=== PATIENT | male | born 1940 | race Caucasian/White ===

== ENCOUNTER 2019-08-23 12:57 | Observation (INO) ==
[2019-08-23 13:44] LABS: Basophils # (auto) 0.02 K/uL (0-0.2); Basophils % (auto) 0.2 %; Eosinophils # (auto) 0.16 K/uL (0-0.5); Eosinophils % (auto) 1.9 %; Hemoglobin 14.5 g/dL (14.0-18.0); Immature Granulocytes # (auto) 0.01 K/uL (0.00-0.02); Immature Granulocytes % (auto) 0.1 %; Lymphocytes # (auto) 2.44 K/uL (1.2-3.4); Lymphocytes % (auto) 29.6 %; Mean Corpuscular Hemoglobin 32.3 pg (25-34); Mean Corpuscular Hgb Conc 33.7 g/dL (32-36); Mean Corpuscular Volume 95.8 fL (80-100); Mean Platelet Volume 10.5 fL (7.4-10.4); Monocytes # (auto) 0.82 K/uL (0.11-0.59); Monocytes % (auto) 9.9 %; Neutrophils % (auto) 58.3 %; Platelet Count 221 K/uL (130-400); RDW Coefficient of Variation 12.7 % (11.5-14.5); RDW Standard Deviation 44.1 fL (36.4-46.3); Red Blood Count 4.49 M/uL (4.7-6.1); White Blood Count 8.25 K/uL (4.8-10.8)
[2019-08-23 13:53] LABS: Alanine Aminotransferase 32 U/L (12-78); Albumin Level 3.7 gm/dl (3.4-5.0); Aspartate Aminotransferase 20 U/L (15-37); BUN Creatinine Ratio 16.1 (10-20); Blood Urea Nitrogen 15 mg/dl (7-18); Calcium 8.9 mg/dl (8.5-10.1); Carbon Dioxide 27 mmol/L (21-32); Chloride 107 mmol/L (98-107); Creatinine Clr Calc Pharmacy 67.3 ml/min; Est GFR (African American) 88.5; Est GFR (Non-African American) 76.4; Glucose 109 mg/dl (70-99); Potassium 3.5 mmol/L (3.5-5.1); Sodium 140 mmol/L (136-145)
--- NOTE | 2019-08-23 13:55 | XRay Report ---
XR chest 1V portable HISTORY: 79 years-old Male weakness acute weakness COMPARISON: Chest radiograph 01/09/2018 TECHNIQUE: Portable AP view of the chest FINDINGS: Cardiac silhouette is mildly enlarged, unchanged. No pneumothorax, pleural effusion, focal airspace c onsolidation or overt pulmonary edema. Bones of the chest appear grossly intact. Vertebroplasty sheppard es at L1. Calcified right hilar lymph nodes. Degenerative changes of the shoulders and spine. IMPRESSION: No acute process. ACT 112: Negative or not required by law. The above report was generated using voice recognition software. It may contain grammatical, syntax o r spelling errors. Electronically signed by: Ritchie Salomon M.D. 08/23/2019 1:53 PM
[2019-08-23 14:04] LABS: Alkaline Phosphatase 59 U/L (45-117); Bilirubin,Total 0.3 mg/dl (0.2-1); Globulin 3.6 gm/dl (2.5-4.0); Total Protein 7.3 gm/dl (6.4-8.2); Troponin I < 0.015 ng/ml (0-0.045)
[2019-08-23 15:19] LABS: Appearance Urine Cloudy (Clear); Bacteria Urine Automated Negative (Negative); Bilirubin Urine Negative (Negative); Blood Urine Negative (Negative); Color Urine Yellow; Epithelial Cell Urine Auto >30 /lpf (0-5); Glucose Urine UA Negative (Negative); Ketones Urine Negative (Negative); Leukocyte Esterase Urine Negative (Negative); Nitrite Urine Negative (Negative); Protein Urine Negative (Negative); RBC Urine Automated 0-4 /hpf (0-4); Specific Gravity Urine 1.014 (1.000-1.030); Urobilinogen Urine Negative (Negative); pH Urine 6.5 (4.5-7.5)
--- NOTE | 2019-08-23 17:02 | History & Physical Report ---
Date of Service August 23, 2019 Assessment & Plan (1) Syncope: This is a 79yo M with no known medical history who presents after witnessed syncopal event this afternoon. -Likely vasovagal syncopal episode -Feeling well now, no lightheadedness, visual changes, chest pain or palpitations -No history of seizures or cardiac arrhythmia -Orthostatic vitals wnl, CXR without acute process, EKG with normal sinus rhythm at 66 bpm, no electrolyte abnormalities -CT head w/o contrast pending, although low suspicion for abnormal findings -Monitor on telemetry overnight DVT Ppx: SQ heparin Code status: FULL PCP: [facility] in [place] and in [place] Dispo: Observation med tele. Plan to return home once medically stable. Patient seen in collaboration with Dr. Alejandre. Please see addendum. History of Present Illness Chief Complaint: syncopal event Primary Care Provider: NO PCP This is a 79yo M with no known medical history who presents after witnessed syncopal event this afternoon. Patient was in normal state of health this morning and went to caodaism. Paton very warm afterwards and took off winter coat and hat before becoming diaphoretic and feeling like he was going to pass out. Per , patient then slumped over in chair and was unresponsive for a few minutes before coming to. Denies any preceding dizziness, visual changes, headache, chest pain, palpitations or shortness of breath. Per , patient seemed lethargic after waking but was alert and oriented. No tongue biting or bowel/bladder incontinence. Denies any history of syncopal events, IN, CVA or seizures. Denies fever, chills, nausea, vomiting, abdominal pain, dysuria, diarrhea or constipation. PCP [facility] in [place] and in [place]. Allergies Allergy/AdvReac Type Severity Reaction Status Date / Time No Known Allergies Allergy Unverified 08/23/19 13:37 Home Medications Home Medications Medication Instructions Recorded Confirmed Type calcium carbonate-vitamin D3 1 tab PO BID 08/23/19 08/23/19 History [Calcium 600 + D(3)] cyanocobalamin (vitamin B-12) 500 mcg PO QAM 08/23/19 08/23/19 History [Vitamin B-12] Past Med/Surg History Medical History No significant medical problems (Chronic) Surgical History H/O lumpectomy H/O Spinal surgery History of thumb surgery Family History Other Cancer Social History Preferred Language: Belarusian Communication Ability: Effective 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 Beliefs That Will Affect Care: None marital status: Current Living Situation: Spouse current occupational status: retired Other Information That Helps Us Care for You: No Feels Safe at Home: Yes Safety Concerns: Feels Safe At This Time Smoking Status: Former smoker Do You Dip or Chew Tobacco: No ; Smoking End Date: 1980 ; Second Hand Exposure: No ; Tobacco Cessation Education Requested by Patient: No Hx Alcohol Use: Yes Alcohol type: beer Alcohol Intake Frequency: Rarely Hx Substance Use: No Childhood Exposure to Second-Hand Smoke: No Review of Systems Review of Systems: At least ten systems reviewed and negative except as noted in the HPI. Physical Exam Physical Exam: Please see Dr. Alejandre's addendum for physical exam details. Results & Data Vital Signs (Past 12 Hours) Vital Signs Temp Pulse Resp BP Pulse Ox 08/23/19 16:13 74 23 152/85 H 08/23/19 16:12 80 13 140/77 08/23/19 16:11 64 19 138/82 08/23/19 16:01 66 18 08/23/19 16:00 62 21 131/94 08/23/19 15:31 61 23 08/23/19 15:30 57 L 12 130/84 08/23/19 15:01 63 15 08/23/19 15:00 63 18 130/82 08/23/19 14:30 63 16 135/86 95 08/23/19 14:00 69 17 138/88 95 08/23/19 13:43 94 08/23/19 13:30 61 15 145/92 H 94 08/23/19 12:57 36.5 C 62 14 156/89 H 97 Laboratory Results Short CBC 08/23/19 Range/Units 12:27 WBC 8.25 (4.8-10.8) K/uL Hgb 14.5 (14.0-18.0) g/dL Hct 43.0 (42-52) % Plt Count 221 (130-400) K/uL BMP 08/23/19 12:27 Sodium 140 Potassium 3.5 Chloride 107 Carbon Dioxide 27 BUN 15 Creatinine 0.95 Glucose 109 H Calcium 8.9 Cardiac Enzymes 08/23/19 Range/Units 12:27 Troponin I < 0.015 (0-0.045) ng/ml Liver Function 08/23/19 Range/Units 12:27 Total Bilirubin 0.3 (0.2-1) mg/dl AST 20 (15-37) U/L ALT 32 (12-78) U/L Alkaline Phosphatase 59 (45-117) U/L Albumin 3.7 (3.4-5.0) gm/dl Urine 08/23/19 Range/Units 15:10 Urine Color Yellow Urine Appearance Cloudy A (Clear) Urine pH 6.5 (4.5-7.5) Ur Specific [place] 1.014 (1.000-1.030) Urine Protein Negative (Negative) Urine Glucose (UA) Negative (Negative) Supervising Physician Co-Signing Physician Notes 79year old man with some hearing deficits (uses hearing aides) who presents after witnessed syncopal event this afternoon at home. History and physical exam performed by me. History is documented by Yarlei Izaguirre PA-C and notable for feeling warm prior to syncopal episode, lasted about 5 mins. No jerky movement of limbs/urinary or bowel incontinence/palpitation/chest pain/SOB prior to episode No confusion on recovery, No focal deficits noted by patient or family. On physical exam General: Elderly, well hydrated, average body habitus, no acute distress and not ill appearing Eyes: PERRL, conjunctivae normal, not pale, anicteric sclerae, EOM intact bilaterally ENMT: External ear and nose normal, Hearing aide in left ear, oropharynx normal Neck: Normal visual inspection, no tracheal deviation, no swelling noted Respiratory: Normal respiratory effort, no respiratory distress, lungs clear to auscultation, no crackles and no wheezes Cardiovascular: Pulse is RRR. S1 S2 no murmurs. No pedal edema Chest (Breasts): Chest: normal inspection of chest Gastrointestinal (Abdomen): Abdomen is not distended, soft, non-tender to palpation, no guarding, no palpable hepatosplenomegaly, normal bowel sounds Musculoskeletal: No cyanosis or clubbing, all extremities motor strength 5/5 Genitourinary: No CVA tenderness Skin: No rash noted on gross inspection, No ulcers noted Neurologic: Alert and oriented x 3, No focal weakness, sensation grossly intact Psychiatric: Euthymic affect, normal judgement Witnessed syncopal episode Likely vasovagal Lab work unremarkable. EKG unremarkable No history of seizures, arrhythmias Only takes Calcium and vitamins Get CT head Family wants patient observed overnight monitoring manager (1) Syncope Syncope type: unspecified Qualified Code(s): R55 - Syncope and collapse
--- NOTE | 2019-08-23 17:58 | Emergency Department Note ---
Entered by Marielle España acting as a scribe for Ranjan Hunt MD ED Provider Note CHIEF COMPLAINT: Syncope HISTORY OF PRESENT ILLNESS: The patient is a 79 year old male who presents to the Emergency Room with complaints of an episode of syncope occurring prior to arrival. The patient's daughter states that on their way home from jehovah's witness today they stopped at her cousin's house so she could drop off some checks. She states that they ended up sitting there and talking for some time. She states that she and the patient were sitting on barstools. She reports that suddenly the patient got off his barstool and took his coat off. She states that he dropped it on the floor before sitting down in the kitchen chair next to the stool. She reports that the patient then took his winter hat off and wiped sweat off his forehead before her cousin asked if he was falling asleep. The patient's daughter states that the patient started to slump in his chair and fall off. She reports that she jumped up to grab him and told her cousin to call 911. She states that she started calling his name, but he was ghost white. She states that his eyes were closed and his mouth was hanging open. She reports that she thought he had . She states that he suddenly jerked his head, opened his eyes, and started waving his arms. She reports that he then kept asking her why she was upset. The patient states that he has no recollection of the event. The patient's daughter states that the patient had icy hands at this time and was soaked in sweat. She notes that this happened once before years ago when he got out of a hot shower. The patient denies head pain and diarrhea. Pt denies headache, fevers, chills, visual changes, neck pain, chest pain, breathing difficulties, nausea, vomiting, abdominal pain, back pain, melena, hematochezia, urinary symptoms, numbness, weakness, lymphadenopathy, rash, or other complaints. REVIEW OF SYSTEMS: See HPI for pertinent positives and negatives. A total of ten systems were reviewed and were otherwise negative. PMHx/PSHx: The patient has a history of spine surgery, lumpectomy, and thumb surgery. SOCIAL HISTORY: Patient lives at home with his . He is retired and a former smoker. He rarely drinks beer and denies doing any substnace use. PHYSICAL EXAM: GENERAL: Awake, alert, well-appearing, in no distress HENT: Normocephalic, atraumatic. Oropharynx unremarkable. EYES: PERRL. Normal conjunctiva. Sclera non-icteric. NECK: Inspection normal. Non-tender. Supple. No nuchal rigidity. FROM. No masses. RESPIRATORY: Clear to auscultation. No wheezes. No rales. Normal respiratory effort. CARDIAC: Normal rate. Normal rhythm. No murmurs. No rubs. Extremities warm and well perfused. Pulses equal. No JVD. GI: Soft, non-distended. No tenderness to palpation. No rebound or guarding. No masses. RECTAL: Deferred. MUSCULOSKELETAL: Atraumatic. Chest examination reveals no tenderness. The back is symmetrical on inspection without obvious abnormality. There is no CVA tenderness to palpation. No joint edema. LOWER EXTREMITIES: Calves are equal size bilaterally and non-tender. No edema. No discoloration. NEURO: Normal sensorium. No sensory or motor deficits noted. SKIN: No rash or jaundice noted. EMERGENCY DEPARTMENT COURSE: 1408: The patient was evaluated in room B12B, and a complete history and physical examination were performed. 1556: I reevaluated the patient and updated him on his test results at this time. I discussed the treatment plan with him. He verbally agrees and understan ds. 1604: I discussed the patient's case [facility] She will evaluate the patient for further management under Dr. Alejandre's service. MEDICAL DECISION MAKING: Triage Nursing notes reviewed and agree them. Additional history obtained from the family. The patient's history was concerning for syncope. Differential diagnosis: Etiologies such as infection, hypoglycemia, electrolyte abnormalities, cardiac sources, vasovagal event, intracerebral event, toxicologic, neurologic, as well as others were entertained. Physical examination: As above. Patient had a nonfocal examination. ER treatment provided: No medication given On reassessment the patient felt better. Diagnostics interpretation by me: ECG: Normal sinus rhythm The labs revealed an unremarkable CBC and chemistry panel. Imaging studies: Chest imaging was performed and was negative for acute process. The patient had a syncopal episode. It seems consistent with a vasovagal event however the patient's was very concerned and did not want the patient discharged. Consultation: A consultation was placed with the hospitalist. The case was discussed and diagnostics were reviewed. The patient was evaluated in the ER for further treatment. HAND OUTSIDE CUTTER: Continuous Cardiac Monitoring: An order was placed for continuous cardiac monitoring. The monitor shows a rate of 62 with normal sinus rhythm. IMPRESSION: Syncope PLAN: Being Evaluated by a Hosptialist. The scribe's documentation has been prepared under my direction and personally reviewed by me in its entirety. I confirm that the note above accurately reflects all work, treatment, procedures, and medical decision making performed by me. Impression & Plan Syncope Past Med/Surg History Medical History No significant medical problems (Chronic) Surgical History H/O lumpectomy H/O Spinal surgery History of thumb surgery Family History Other Cancer Social History Preferred Language: Syriac marital status: Current Living Situation: Spouse current occupational status: retired Feels Safe at Home: Yes Smoking Status: Former smoker Smoking End Date: 1980 ; Hx Alcohol Use: Yes Alcohol type: beer Alcohol Intake Frequency: Rarely Hx Substance Use: No Childhood Exposure to Second-Hand Smoke: No Results & Data Vital Signs Vital Signs - 24 hr 08/23/19 12:57 08/23/19 13:30 08/23/19 13:43 Temperature 36.5 C Temperature Source Oral Pulse Rate - Lying Pulse Rate - Sitting Pulse Rate - Standing Pulse Rate 62 61 Pulse Rhythm Regular Respiratory Rate 14 15 Respiratory Effort / Characteristics Non-Labored Respiratory Depth Normal Respiratory Pattern Regular Blood Pressure - Lying Blood Pressure - Sitting Blood Pressure- Standing Blood Pressure 156/89 H 145/92 H Blood Pressure Mean 111 104 Pulse Oximetry 97 94 94 Oxygen Delivery Method Room Air Room Air Room Air Sepsis Recent Fever Within 48 Hours No Sepsis New/Unexplained Change in Mental Status No Sepsis Action Taken by Nursing No Action Required 08/23/19 14:00 08/23/19 14:30 08/23/19 15:00 Temperature Temperature Source Pulse Rate - Lying Pulse Rate - Sitting Pulse Rate - Standing Pulse Rate 69 63 63 Pulse Rhythm Respiratory Rate 17 16 18 Respiratory Effort / Characteristics Respiratory Depth Respiratory Pattern Blood Pressure - Lying Blood Pressure - Sitting Blood Pressure- Standing Blood Pressure 138/88 135/86 130/82 Blood Pressure Mean 103 96 102 Pulse Oximetry 95 95 Oxygen Delivery Method Room Air Room Air Sepsis Recent Fever Within 48 Hours Sepsis New/Unexplained Change in Mental Status Sepsis Action Taken by Nursing 08/23/19 15:01 08/23/19 15:30 08/23/19 15:31 Temperature Temperature Source Pulse Rate - Lying Pulse Rate - Sitting Pulse Rate - Standing Pulse Rate 63 57 L 61 Pulse Rhythm Respiratory Rate 15 12 23 Respiratory Effort / Characteristics Respiratory Depth Respiratory Pattern Blood Pressure - Lying Blood Pressure - Sitting Blood Pressure- Standing Blood Pressure 130/84 Blood Pressure Mean 95 Pulse Oximetry Oxygen Delivery Method Sepsis Recent Fever Within 48 Hours Sepsis New/Unexplained Change in Mental Status Sepsis Action Taken by Nursing 08/23/19 16:00 08/23/19 16:01 08/23/19 16:11 Temperature Temperature Source Pulse Rate - Lying Pulse Rate - Sitting Pulse Rate - Standing Pulse Rate 62 66 64 Pulse Rhythm Respiratory Rate 21 18 19 Respiratory Effort / Characteristics Respiratory Depth Respiratory Pattern Blood Pressure - Lying Blood Pressure - Sitting Blood Pressure- Standing Blood Pressure 131/94 138/82 Blood Pressure Mean 104 98 Pulse Oximetry Oxygen Delivery Method Sepsis Recent Fever Within 48 Hours Sepsis New/Unexplained Change in Mental Status Sepsis Action Taken by Nursing 08/23/19 16:12 08/23/19 16:13 Temperature Temperature Source Pulse Rate - Lying 66 Pulse Rate - Sitting 71 Pulse Rate - Standing 65 Pulse Rate 80 74 Pulse Rhythm Respiratory Rate 13 23 Respiratory Effort / Characteristics Respiratory Depth Respiratory Pattern Blood Pressure - Lying 138/82 Blood Pressure - Sitting 140/77 Blood Pressure- Standing 152/85 H Blood Pressure 140/77 152/85 H Blood Pressure Mean 103 112 Pulse Oximetry Oxygen Delivery Method Sepsis Recent Fever Within 48 Hours Sepsis New/Unexplained Change in Mental Status Sepsis Action Taken by [facility] Medications Current Medication List: was personally reviewed by me Laboratory Data Attestation: I reviewed the patient's lab results. Result diagrams: 08/23/19 12:27 08/23/19 12:27 Lab Results 08/23/19 08/23/19 08/23/19 Range/Units 12:27 12:27 15:10 WBC 8.25 (4.8-10.8) K/uL RBC 4.49 L (4.7-6.1) M/uL Hgb 14.5 (14.0-18.0) g/dL Hct 43.0 (42-52) % MCV 95.8 (80-100) fL MCH 32.3 (25-34) pg MCHC 33.7 (32-36) g/dL RDW Std Deviation 44.1 (36.4-46.3) fL RDW Coeff of Howie 12.7 (11.5-14.5) % Plt Count 221 (130-400) K/uL MPV 10.5 H (7.4-10.4) fL Immature Gran % (Auto) 0.1 % Neut % (Auto) 58.3 % Lymph % (Auto) 29.6 % [place] % (Auto) 9.9 % Eos % (Auto) 1.9 % Baso % (Auto) 0.2 % Immature Gran # (Auto) 0.01 (0.00-0.02) K/uL Neut # (Auto) 4.80 (1.4-6.5) K/uL Lymph # (Auto) 2.44 (1.2-3.4) K/uL [place] # (Auto) 0.82 H (0.11-0.59) K/uL Eos # (Auto) 0.16 (0-0.5) K/uL Baso # (Auto) 0.02 (0-0.2) K/uL Sodium 140 (136-145) mmol/L Potassium 3.5 (3.5-5.1) mmol/L Chloride 107 (98-107) mmol/L Carbon Dioxide 27 (21-32) mmol/L Anion Gap 6.0 (3-11) BUN 15 (7-18) mg/dl Creatinine 0.95 (0.6-1.4) mg/dl Est Cr Clr Drug Dosing 67.3 ml/min Est GFR ( Amer) 88.5 Est GFR (Non-Af Amer) 76.4 BUN/Creatinine Ratio 16.1 (10-20) Glucose 109 H (70-99) mg/dl Calcium 8.9 (8.5-10.1) mg/dl Magnesium 2.0 (1.8-2.4) mg/dl Total Bilirubin 0.3 (0.2-1) mg/dl AST 20 (15-37) U/L ALT 32 (12-78) U/L Alkaline Phosphatase 59 (45-117) U/L Troponin I < 0.015 (0-0.045) ng/ml Total Protein 7.3 (6.4-8.2) gm/dl Albumin 3.7 (3.4-5.0) gm/dl Globulin 3.6 (2.5-4.0) gm/dl Albumin/Globulin Ratio 1.0 (0.9-2) TSH 6.650 H (0.300-4.500) uIu/ml Free T4 0.80 (0.8-1.6) ng/dl Urine Color Yellow Urine Appearance Cloudy A (Clear) Urine pH 6.5 (4.5-7.5) Ur Specific [place] 1.014 (1.000-1.030) Urine Protein Negative (Negative) Urine Glucose (UA) Negative (Negative) Urine Ketones Negative (Negative) Urine Blood Negative (Negative) Urine Nitrite Negative (Negative) Urine Bilirubin Negative (Negative) Urine Urobilinogen Negative (Negative) Ur Leukocyte Esterase Negative (Negative) Urine WBC (Auto) 1-5 (0-5) /hpf Urine RBC (Auto) 0-4 (0-4) /hpf U Hyaline Cast (Auto) 1-5 (0-5) /lpf U Epithel Cells (Auto) >30 H (0-5) /lpf Urine Bacteria (Auto) Negative (Negative) Imaging Data Radiologist's Impression: Radiology results as stated below per my review and the radiologist's interpretation: XR chest 1V portable HISTORY: 79 years-old Male weakness acute weakness COMPARISON: Chest radiograph 01/09/2018 TECHNIQUE: Portable AP view of the chest FINDINGS: Cardiac silhouette is mildly enlarged, unchanged. No pneumothorax, pleural effusion, focal airspace consolidation or overt pulmonary edema. Bones of the chest appear grossly intact. Vertebroplasty changes at L1. Calcified right hilar lymph nodes. Degenerative changes of the shoulders and spine. IMPRESSION: No acute process. ACT 112: Negative or not required by law. The above report was generated using voice recognition software. It may contain grammatical, syntax or spelling errors. Electronically signed by: Ritchie Salomon M.D. 08/23/2019 1:53 PM ECG Data Attestation: I personally reviewed and interpreted this ECG as follows: Indication: + syncope Rate (beats per minute): 66 Rhythm: normal sinus ECG Intervals/blocks: + Normal QRS and + Normal QT ECG [place]: + Normal ECG ST segments: no ST depression and no ST elevation ECG Findings: + LVH; no PACs and no PVCs Comparison ECG Date: from (01/09/2018) Change: the following changes noted (heart rate has decreased by 44 beats per minute) Blood Pressure Blood Pressure Findings: Elevated blood pressure Blood Pressure Disposition: Referred to patients primary care provider Discharge Plan Visit Data Chief Complaint: Syncope (Near Syncope) Stated Complaint: NEAR SYNCOPE ED Provider: Ranjan Hunt Discharge Problem: Syncope Patient Disposition: Being Evaluated by Hospitalist Forms Stand Alone Forms: My [facility] slinkset Prescriptions Prescriptions: No Action cyanocobalamin (vitamin B-12) [Vitamin B-12] 500 mcg Tablet 500 mcg PO QAM RF: 0 calcium carbonate-vitamin D3 [Calcium 600 + D(3)] 600 mg(1,500mg) -400 unit Tablet 1 tab PO BID RF: 0 Referrals Referrals: PCP,NO [Primary Care Provider] - Discharge Problem: Syncope Qualifiers: Syncope type: unspecified Qualified Code(s): R55 - Syncope and collapse The scribe's documentation has been prepared under my direction and personally reviewed by me in its entirety. I confirm that the note above accurately reflects all work, treatment, procedures, and medical decision making performed by me.
--- NOTE | 2019-08-23 18:21 | Electrocardiogram Report ---
Test Reason : Blood Pressure : / mmHG Vent. Rate : 066 BPM Atrial Rate : 066 BPM P-R Int : 184 ms QRS Dur : 104 ms QT Int : 434 ms P-R-T Axes : 029 -01 014 degrees QTc Int : 454 ms Normal sinus rhythm Minimal voltage criteria for LVH, may be normal variant Borderline ECG When compared with ECG of 09-JAN-2018 22:45, Vent. rate has decreased BY 44 BPM Confirmed by Augustin Cantu ([id number]) on 08/23/2019 6:20:59 PM Referred By: ER Confirmed By:Bobby Cantu
[2019-08-23] MEDS ORDERED: ACETAMINOPHEN 325 MG TAB PO PRN (18:44)
[2019-08-23] MEDS ORDERED: POLYETHYLENE (MIRALAX) 17 GM PACK PO PRN (18:44)
--- NOTE | 2019-08-23 20:13 | CT Scan Report ---
CT head/brain wo con CLINICAL HISTORY: 79 years-old Male with syncope. Acute syncope TECHNIQUE: Multiple axial CT images of the head were obtained without contrast. A dose lowering tech nique was utilized adhering to the principles of ALARA. CT DOSE: 614.27 mGy.cm COMPARISON: None. FINDINGS: No acute intracranial hemorrhage, midline shift, intracranial mass, hydrocephalus, territorial ischem ia or abnormal extra-axial collection. Age-related involutional changes. Cerebral vascular calcificat ions are noted. Senescent calcifications of the lentiform nuclei. The calvarium is intact. Trace mastoid effusions. Mild polypoid mucosal thickening of the left maxil wilbert sinus with mild mucosal thickening of the ethmoid air cells. Soft tissues and orbits are unremar kable. IMPRESSION: No acute intracranial abnormality or calvarial fracture. ACT 112: Negative or not required by law. The above report was generated using voice recognition software. It may contain grammatical, syntax o r spelling errors. Electronically signed by: Ritchie Salomon M.D. 08/23/2019 8:12 PM
[2019-08-23] MEDS: CALCIUM 600MG + VIT D 400 IU TAB PO SCH (21:48)
[2019-08-24 06:33] LABS: Hematocrit (blood only) 42.5 % (42-52); Hemoglobin 14.4 g/dL (14.0-18.0); Mean Corpuscular Hemoglobin 32.3 pg (25-34); Mean Corpuscular Hgb Conc 33.9 g/dL (32-36); Mean Corpuscular Volume 95.3 fL (80-100); Mean Platelet Volume 9.8 fL (7.4-10.4); Platelet Count 208 K/uL (130-400); RDW Coefficient of Variation 12.8 % (11.5-14.5); RDW Standard Deviation 44.4 fL (36.4-46.3); Red Blood Count 4.46 M/uL (4.7-6.1); White Blood Count 7.02 K/uL (4.8-10.8)
[2019-08-24 07:36] LABS: BUN Creatinine Ratio 17.1 (10-20); Est GFR (African American) 86.3; Est GFR (Non-African American) 74.5
[2019-08-24] MEDS: CALCIUM 600MG + VIT D 400 IU TAB PO SCH (08:44)
[2019-08-24] MEDS ORDERED: CYANOCOBALAMIN 500 MCG TABLET (VITAMIN B-12) PO SCH (09:00)
--- NOTE | 2019-08-24 10:10 | Hospitalist Progress Note ---
Date of Service August 24, 2019 Assessment & Plan (1) Syncope: -Presented with most likely vasovagal syncopal episode -[place] warm, nauseous, dizzy spell, passed out for brief seconds, recovered spontaneously without any confusion chest pain or headache Neuro imaging: CT head no acute change, EKG shows normal sinus rhythm no arrhythmia on telemetry -Patient reports he started to feel fine after arriving to hospital last night, overnight did not had any acute event, this morning able to walk and do his daily activities : Going to bathroom, brushing hair independently without any symptoms No nausea vomiting, finished breakfast no complaint of chest pain dyspnea on exertion cause of vasovagal syncope explained to patient, No sign of acute CVA, no evidence of any cardiac cause of syncope Stable to be discharged home today Carotid Doppler ordered for completeness sake Patient is asked to take low-dose aspirin 81 mg daily after meals for primary prevention of stroke/coronary event Family physician follow-up scheduled on 08/26/2019 Called patient's updated over phone, Patient will be discharged home later today, will provide transport home DVT Ppx: SQ heparin Code status: FULL PCP: VICTORINO in [place] and in [facility] follow-up scheduled [facility] next week Subjective Had an uneventful night, no further episode of syncope Patient feels fine no complaint of dizzy spell lightheadedness, No nausea vomiting, no fever chills Complaint of cough no chest heaviness, Able to walk independently, no loss of balance gait disturbance or dizzy spell noted No weakness or paresthesia Stable to be discharged home today Review of Systems Review of Systems: At least ten systems reviewed and negative except as noted in the HPI. Constitutional: no fatigue and no problem reported Eyes: no problem reported Respiratory: no cough, no dyspnea and no dyspnea on exertion Cardiovascular: no chest pain, no dyspnea, no dyspnea on exertion, no orthopnea, no palpitations, no lightheadedness and no syncope Gastrointestinal: no nausea Neurologic: no gait abnormality, no unsteadiness, no localized weakness, no dizziness and no syncope Physical Exam Constitutional: well developed; no acute distress Eyes: PERRL, conjunctivae normal, anicteric sclerae ENMT: external ear and nose normal, oropharynx normal Neck: trachea midline, no thyromegaly Respiratory: normal respiratory effort, lungs clear to auscultation Cardiovascular: RRR, no murmur, no edema Gastrointestinal (Abdomen): normal bowel sounds, soft, nontender, no hepatosplenomegaly Musculoskeletal: no cyanosis or clubbing, extremities motor strength 5/5 Skin: no rashes, warm and dry Neurologic: PERRL, EOMI, accommodation nl, no face palsy, no dysarthria Psychiatric: A+Ox3, euthymic affect Results & Data Vital Signs (Past 12 Hours) Vital Signs Temp Pulse Pulse Resp BP BP Pulse Ox 08/24/19 09:34 59 L 08/24/19 07:33 36.8 C 58 L 20 126/71 93 08/24/19 04:00 36.7 C 65 18 120/79 08/24/19 00:00 61 08/23/19 23:11 36.9 C 59 L 18 138/74 95 (1) Syncope Syncope type: unspecified Qualified Code(s): R55 - Syncope and collapse
--- NOTE | 2019-08-24 10:36 | Discharge Summary ---
Date of Service August 24, 2019 Admission HPI Per Admitting Provider This is a 79yo M with no known medical history who presents after witnessed syncopal event this afternoon. Patient was in normal state of health this morning and went to [place]. [place] very warm afterwards and took off winter coat and hat before becoming diaphoretic and feeling like he was going to pass out. Per , patient then slumped over in chair and was unresponsive for a few minutes before coming to. Denies any preceding dizziness, visual changes, headache, chest pain, palpitations or shortness of breath. Per , patient seemed lethargic after waking but was alert and oriented. No tongue biting or bowel/bladder incontinence. Denies any history of syncopal events, NC, CVA or seizures. Denies fever, chills, nausea, vomiting, abdominal pain, dysuria, diarrhea or constipation. PCP [facility] in [place] and in [place]. Principal Diagnosis Vasovagal syncope Discharge Exam Constitutional well developed; no acute distress Eyes PERRL, conjunctivae normal, anicteric sclerae ENMT external ear and nose normal, oropharynx normal Neck trachea midline, no thyromegaly Respiratory normal respiratory effort, lungs clear to auscultation Cardiovascular RRR, no murmur, no edema Gastrointestinal (Abdomen) normal bowel sounds, soft, nontender, no hepatosplenomegaly Musculoskeletal no cyanosis or clubbing, extremities motor strength 5/5 Skin no rashes, warm and dry Neurologic PERRL, EOMI, accommodation nl, no face palsy, no dysarthria Psychiatric A+Ox3, euthymic affect Discharge Data Allergies Allergy/AdvReac Type Severity Reaction Status Date / Time No Known Allergies Allergy Unverified 08/23/19 13:37 Consultations 08/23/19 16:06 ED Decision to Admit Stat Ordered Studies 08/23/19 18:44 CT head/brain wo con Routine 08/24/19 10:19 US carotid doppler BI Routine Hospital Course (1) Syncope: -Presented with most likely vasovagal syncopal episode -[place] warm, nauseous, dizzy spell, passed out for brief seconds, recovered spontaneously without any confusion chest pain or headache Neuro imaging: CT head no acute change, EKG shows normal sinus rhythm no arrhythmia on telemetry -Patient reports he started to feel fine after arriving to hospital last night, overnight did not had any acute event, this morning able to walk and do his daily activities : Going to bathroom, brushing hair independently without any symptoms No nausea vomiting, finished breakfast no complaint of chest pain dyspnea on exertion cause of vasovagal syncope explained to patient, No sign of acute CVA, no evidence of any cardiac cause of syncope Stable to be discharged home today Carotid Doppler ordered for completeness sake Patient is asked to take low-dose aspirin 81 mg daily after meals for primary prevention of stroke/coronary event Family physician follow-up scheduled on 08/26/2019 Called patient's updated over phone, Patient will be discharged home later today, will provide transport home DVT Ppx: SQ heparin Code status: FULL PCP: VICTORINO in [place] and in [facility] follow-up scheduled [facility] next week Total Time Total Time Spent Total Time Spent (In Minutes): Approximately 35 minutes Total Time Includes: Examination of the Patient, Discharge Planning and Medication Reconciliation Discharge Plan Discharge Items Patient Disposition: Home - Self-Care Reason For Visit: SYNCOPE Discharge Diagnosis: Passing out/vasovagal syncope effect All symptom has resolved Activity: Resume your previous activity Non-emergency contact: Primary Care Provider Call non-emergency contact if: you have any medication questions Follow-up/Referrals: German Benavides V., [Outside Practitioners] - 08/26/19 1:45 pm Diet: Heart Healthy Addtl Attending Provider Instructions: Please drink plenty of fluids, keep yourself active, Hospital follow-up with Dr. Benavides on Monday, August 26, 2019 at 1:45 PM Pending Studies at Discharge: No Stand-Alone Forms: My Drive.SG, Smoking Cessation Medications and DC Order Prescriptions: New aspirin 81 mg tablet,delayed release (DR/EC) 81 mg PO DAILY Qty: 30 RF: 3 Continued cyanocobalamin (vitamin B-12) [Vitamin B-12] 500 mcg Tablet 500 mcg PO QAM RF: 0 calcium carbonate-vitamin D3 [Calcium 600 + D(3)] 600 mg(1,500mg) -400 unit Tablet 1 tab PO BID RF: 0 Discharge Orders: Discharge Order (Routine); Ordered 08/24/19 Ordered By: Carli Wan/Other Patient Handouts: Treatment for Vasovagal Syncope, Understanding Vasovagal Syncope Admission Data Admit Date/Time: 08/23/19 17:44 Attending Provider: Carli Koch Admit Provider: Dianne Alejandre I. Primary Care Provider: PCP,NO Other Providers: Dianne Alejandre I.
--- NOTE | 2019-08-24 14:19 | Ultrasound Report ---
ULTRASOUND OF THE CAROTID ARTERIES CLINICAL HISTORY: syncope COMPARISON STUDY: None. TECHNIQUE: Real-time, grayscale, and color Doppler sonography of the carotid arteries was performed. Imaging reviewed in the transverse and longitudinal planes. NASCET criteria was utilized for stenosis calcification. FINDINGS: There is mild atherosclerotic plaque present . The peak systolic velocity within the right internal carotid artery is 64 cm/sec. The systolic velocity ratio of right internal to common carotid artery is 0.6. The peak systolic velocity within the left internal carotid artery is 87 cm/sec. The systolic velocity ratio left internal to common carotid artery is 0.7. Antegrade flow is seen in the vertebral arteries. The external carotid arteries are patent. Blood pressure in the right arm measured 132 mm/Hg. Blood pressure in the left arm measured 139 mm/H g. IMPRESSION: No evidence of hemodynamically significant carotid stenosis. ACT 112: Negative or not required by law. Electronically signed by: Art Vasquez M.D. 08/24/2019 2:17 PM
== END 2019-08-24 15:22 | disposition home or self-care (01) ==
LOC: 2N 12:57 → ED 12:57 → SUATTDRO 17:44 → 2N 18:41